=== PATIENT | female | born 1950 | race African-American/Black ===

== ENCOUNTER 2018-07-26 10:32 | Emergency (ER) | payer MEDICAID, OTHER ==
[~2018-07-26] VITALS: Ht 170.2 cm; Wt 104.0 kg
[~2018-07-26 10:32] MED LIST: AMLO10TA80; ASPI-864 PO; BUDE6HFA INH; LEVA15HF4 INH; LISI-186
[2018-07-26] MEDS ORDERED: HYDROCODONE/ACETAMINOPHEN 5/325MG TABLET PO ONE (11:15)
[2018-07-26 11:17] VITALS: BP 154/96
== END 2018-07-26 13:24 | disposition home or self-care (01) ==
LOC: ER 10:32
DX: M51.26 Other intervertebral disc displacement, lumbar region (principal); R15.9 Full incontinence of feces; I25.10 Atherosclerotic heart disease of native coronary artery without angina pectoris; E78.00 Pure hypercholesterolemia, unspecified; I10 Essential (primary) hypertension; J44.9 Chronic obstructive pulmonary disease, unspecified; Z88.0 Allergy status to penicillin; Z98.51 Tubal ligation status
CPT/HCPCS: 72148; 99284

== ENCOUNTER 2018-10-25 08:11 | Emergency (ER) | payer MEDICAID, OTHER ==
[~2018-10-25] VITALS: Ht 170.2 cm; Wt 105.0 kg
[2018-10-25] MEDS ORDERED: NITROGLYCERIN 0.4MG TABLET SL SL PRN (09:00)
[2018-10-25] MEDS ORDERED: ASPIRIN 81MG TABLET PO ONE (09:00)
[2018-10-25 09:35] LABS: BASOPHILS % 1.2 % (0.0-2.0); EOSINOPHILS % 1.2 % (0.0-5.0); LYMPHOCYTES % 42.6 % (20.0-50.0); MEAN CORPUSCULAR VOLUME 88.9 fL (81.0-99.0); MEAN PLATELET VOLUME 8.6 fl (7.4-10.4); MONOCYTES % 5.8 % (2.0-8.0); NEUTROPHILS % 49.2 % (40.0-76.0); PLATELET 260 x1000/uL (130-400); RED BLOOD CELL COUNT 5.52 mill/uL (4.2-5.4); RED CELL DISTRIBUTION WIDTH 14.6 % (11.6-14.6)
[2018-10-25 09:37] LABS: CHLORIDE 109 mEq/L (98-107)
[2018-10-25] MEDS ORDERED: METHYLPREDNISOLONE SOD SUCC 125 MG/2 ML VIAL IV STA (10:06)
[2018-10-25] MEDS ORDERED: ALBUTEROL (0.083%) 2.5MG/3ML NEB HHN STA (10:06)
[2018-10-25 14:25] VITALS: BP 146/82
== END 2018-10-25 14:15 | disposition short-term general hospital (02) ==
LOC: ER 08:40 → CANBEDREQ 10:09 → ER 14:15
DX: J44.1 Chronic obstructive pulmonary disease with (acute) exacerbation (principal); R06.03 Acute respiratory distress; I11.0 Hypertensive heart disease with heart failure; I50.9 Heart failure, unspecified; I25.2 Old myocardial infarction; E78.00 Pure hypercholesterolemia, unspecified; F12.10 Cannabis abuse, uncomplicated; F17.200 Nicotine dependence, unspecified, uncomplicated; Z98.51 Tubal ligation status; Z86.73 Personal history of transient ischemic attack (TIA), and cerebral infarction without residual deficits; Z79.82 Long term (current) use of aspirin; Z88.0 Allergy status to penicillin
CPT/HCPCS: 36415; 71045; 80053; 83880; 84484; 85025; 93005; 94640; 96374; 99285; J2930; J7611; Z7610

== ENCOUNTER 2019-05-11 07:30 | Emergency (ER) | payer MEDICARE, OTHER ==
[~2019-05-11] VITALS: Ht 170.2 cm; Wt 97.0 kg
[2019-05-11 08:31] LABS: BASOPHILS % 0.7 % (0.0-2.0); EOSINOPHILS % 0.5 % (0.0-5.0); LYMPHOCYTES % 34.4 % (20.0-50.0); MEAN CORPUSCULAR HEMOGLOBIN 30.3 pg (28.0-32.0); MEAN CORPUSCULAR VOLUME 90.8 fL (81.0-99.0); MEAN PLATELET VOLUME 8.8 fl (7.4-10.4); MONOCYTES % 6.7 % (2.0-8.0); NEUTROPHILS % 57.7 % (40.0-76.0); PLATELET 237 x1000/uL (130-400); RED BLOOD CELL COUNT 4.62 mill/uL (4.2-5.4); RED CELL DISTRIBUTION WIDTH 15.2 % (11.6-14.6)
[2019-05-11 08:39] LABS: CHLORIDE 108 mEq/L (98-107)
[2019-05-11] MEDS ORDERED: ASPIRIN 325MG EC TABLET PO NR (10:15)
[2019-05-11] MEDS ORDERED: POTASSIUM CHLORIDE INJ 40 MEQ in DEXT 5% WATER 250 ML IV SCH (12:00)
[2019-05-11] MEDS ORDERED: ONDANSETRON HCL 4MG/2ML INJ IV STA (13:08)
[2019-05-11] MEDS ORDERED: MORPHINE SULFATE 4 MG/ML CPJ (NOT FOR IM USE) IV STA (13:08)
[2019-05-11 14:46] VITALS: BP 134/64
== END 2019-05-11 15:31 | disposition short-term general hospital (02) ==
LOC: EDBEDREQ 07:58 → ER 08:21 → CANBEDREQ 10:38 → SUPCPDRO 11:03 → ER 15:31
DX: R07.89 Other chest pain (principal); J44.9 Chronic obstructive pulmonary disease, unspecified; I25.2 Old myocardial infarction; I11.0 Hypertensive heart disease with heart failure; E87.6 Hypokalemia; I50.9 Heart failure, unspecified; E66.9 Obesity, unspecified; F12.10 Cannabis abuse, uncomplicated; Z68.33 Body mass index [BMI] 33.0-33.9, adult; Z86.73 Personal history of transient ischemic attack (TIA), and cerebral infarction without residual deficits; Z91.14 Patient's other noncompliance with medication regimen; Z98.890 Other specified postprocedural states; Z98.51 Tubal ligation status; Z88.0 Allergy status to penicillin
CPT/HCPCS: 36415; 71045; 80053; 83880; 84484; 85025; 93005; 96365; 96366; 96375; 99285; J2270; J2405; J3480; J7060